=== PATIENT | male | born 1945 | race Caucasian/White ===

== ENCOUNTER 2018-08-14 08:06 | Day surgery (SDC) | payer MEDICARE, BC ==
[~2018-08-14] VITALS: Ht 180.3 cm; Wt 98.8 kg
[2018-08-14 08:36] VITALS: BP 164/106; PULSE 99; TEMP 98.1
[2018-08-14] MEDS ORDERED: FLOMAX 0.40.4 MG/CAP PO (08:42)
[2018-08-14] MEDS ORDERED: HCTZ 25MG TAB25 MG PO (08:43)
[2018-08-14 10:25] VITALS: BP 126/95; PULSE 78; TEMP 98.1
--- NOTE | 2018-08-14 10:25 | NUR ---
Pt arrived to room from endo procedure. pt walked to chair with steady gait, x1 assist. Pt A/Ox3, request ice water at this time. Denies any nausea. Pt's in room. VSS. CAll light in reach. Report received from KAYKAY Cobos.
[2018-08-14 10:40] VITALS: BP 131/95; PULSE 65; TEMP 98.2
--- NOTE | 2018-08-14 10:44 | NUR ---
Pt tolerating sips of water. STates he has some discomfort in his stomach that "comes and goes". Denies any nausea. Waiting to talk to Dr Graham of colonosopy findings.
[2018-08-14 10:55] VITALS: BP 131/95; PULSE 65; TEMP 98.2
--- NOTE | 2018-08-14 11:10 | NUR ---
Discharge paperwork given to pt and pt's . Answered all questions to their satisfaction. Pt signed discharge instructions, med list and procedure information.
--- NOTE | 2018-08-14 11:20 | NUR ---
Pt discharged from [facility]. Pt left unit via wheelchair to private vehicle spouse is driving.
== END 2018-08-14 11:20 | disposition home or self-care (01) ==
LOC: SDCO 08:06
DX: Z86.010 Personal history of colon polyps (principal); D12.2 Benign neoplasm of ascending colon; D12.4 Benign neoplasm of descending colon; D12.3 Benign neoplasm of transverse colon; K57.30 Diverticulosis of large intestine without perforation or abscess without bleeding; K64.4 Residual hemorrhoidal skin tags; Z79.899 Other long term (current) drug therapy; Z79.82 Long term (current) use of aspirin; I10 Essential (primary) hypertension; N40.0 Benign prostatic hyperplasia without lower urinary tract symptoms; E78.00 Pure hypercholesterolemia, unspecified; K64.2 Third degree hemorrhoids
CPT/HCPCS: J2704; J7120

== ENCOUNTER → 2019-05-14 | Outpatient (CLI) | payer MEDICARE, BC ==
[~2019-05-14] MED LIST: FLOMAX 0.40.4 MG/CAP PO; HCTZ 25MG TAB25 MG PO
== END ==
LOC: COL.RAD 05-03 11:30
DX: K76.89 Other specified diseases of liver (principal); N28.1 Cyst of kidney, acquired; D75.1 Secondary polycythemia
CPT/HCPCS: Q9967